=== PATIENT | female | born 1965 | race African-American/Black ===

== ENCOUNTER → 2023-10-17 10:09 | Outpatient (REF) | payer OTHER, SELFPAY | LOC: RCS 10:09 | PROVIDERS: ATTENDING PHYSICIAN Internal Medicine Cardiovascular Disease; FAMILY PHYSICIAN Physician Assistant | DX: I10 Essential (primary) hypertension (principal); R06.09 Other forms of dyspnea | CPT/HCPCS: 93306 ==

== ENCOUNTER → 2023-10-22 07:36 | Outpatient (REF) | payer OTHER, SELFPAY | LOC: DHCBC/DCA 07:36 | PROVIDERS: ATTENDING PHYSICIAN Internal Medicine Cardiovascular Disease; FAMILY PHYSICIAN Physician Assistant | DX: I10 Essential (primary) hypertension (principal); R06.09 Other forms of dyspnea | CPT/HCPCS: 78452; 93017; A9500 ==